=== PATIENT | female | born 2005 | race Two or more races ===

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

== ENCOUNTER 2023-01-09 13:59 | Emergency (ER) | payer OTHER, SELFPAY ==
[2023-01-09 14:45] VITALS: BP 100/85; PULSE 130; RESP 17; TEMP 38.3; O2SAT 99; BMI 37.8
--- NOTE | 2023-01-09 14:46 | ED.GENADULT ---
HPI - General Adult General Chief complaint: General Medical Stated complaint: Sore throat/Fever Time Seen by Provider: 01/09/23 14:46 Source: patient, RN notes reviewed and old records reviewed Mode of arrival: ambulatory Limitations: no limitations History of Present Illness HPI narrative: 17-year-old female presents for evaluation of sore throat and fever. Patient reports that she woke up this morning. She is able to handle her secretions. She is able to eat and drink but it is painful. Denies any cough or respiratory symptoms. She has had some associated nausea Related Data Previous Rx's Medication Instructions Recorded erythromycin 5 mg/gram (0.5 %) eye 0.5 inch ophthalmic (eye) QID #3.5 08/28/20 ointment grams clindamycin HCl 300 mg capsule 300 mg PO Q6H 7 days #28 caps 08/15/21 oxycodone 5 mg capsule 5 mg PO Q8H PRN pain 2 days #6 caps 08/15/21 benzonatate 200 mg capsule 200 mg PO TID PRN cough #14 caps 11/27/21 ibuprofen 600 mg tablet 600 mg PO Q8H PRN pain #20 tabs 11/27/21 oseltamivir 75 mg capsule (Tamiflu) 75 mg PO BID 5 days #10 caps 11/27/21 miconazole nitrate 1,200 mg-2 % 1 supp vaginal BEDTIME 1 dose #1 ea 08/09/22 vaginal kit metronidazole 500 mg tablet 500 mg PO Q12H 7 days #14 tabs 08/12/22 erythromycin 5 mg/gram (0.5 %) eye 0.5 inch ophthalmic (eye) TID #3.5 10/03/22 ointment grams clindamycin HCl 300 mg capsule 300 mg PO Q6H #28 caps 01/09/23 (Cleocin HCl) ondansetron 4 mg disintegrating 4 mg PO Q8H PRN nausea and 01/09/23 tablet vomiting #20 tabs Allergies Allergy/AdvReac Type Severity Reaction Status Date / Time amoxicillin [AMOXICILLIN] Allergy Unknown HIVES Verified 01/09/23 14:45 Review of Systems Constitutional: Constitutional: Denies body ache(s), Reports fatigue, Reports fever(s) and Denies headache(s) Eyes: Eyes: Denies blurry vision ENT: Denies headache(s) and Reports sore throat Cardiovascular: Cardiovascular: Denies chest pain and Denies dyspnea Respiratory: Respiratory: Denies cough and Denies dyspnea Gastrointestinal: Gastrointestinal: Denies abdominal pain, Reports nausea and Denies vomiting Neurologic: Denies headache(s) Endocrine: Endocrine: Reports fatigue PMFSH Past Medical History Medical History Asthma Surgical History S/P cholecystectomy Social History Social History Advance Directives: No Advance Directives Information Provided: Yes Physical Exam ED Vital Signs: Vital Signs - 24 hr 01/09/23 14:45 01/09/23 15:54 Temperature 101 F H Pulse Rate 130 H 115 H Respiratory Rate 17 Blood Pressure 100/85 Pulse Oximetry 99 98 Oxygen Delivery Method Room Air Room Air BMI result Body Mass Index 37.8 Const General: healthy appearing, comfortable, no acute distress, alert and awake Nutritional Appearance: well nourished Orientation/consciousness: patient oriented x3 HENMT Other: Retropharynx is erythematous with tonsillar hypertrophy. Airway is patent Head: Yes normocephalic and Yes atraumatic Eyes Eyelids: Yes eyelids normal Conjunctivae: conjunctivae normal Sclerae: sclerae normal Corneas: corneas normal Pupils: Equal, round and reactive pupils present EOM: EOMs intact bilaterally Neck Neck: Yes full ROM Resp Effort & Inspection: normal respiratory effort, able to speak in complete sentences, no audible wheezes and not labored Auscultation: clear to auscultation bilaterally Cardio Rate: regular rate Rhythm: regular rhythm GI Inspection: No distended Palpation (GI): Soft to palpation, not firm, nontender, no guarding and not rigid Auscultation: normoactive bowel sounds Skin General skin exam: no rashes or lesions noted and elasticity normal Neuro General: patient oriented x3 Cranial nerves: Yes Equal, round and reactive pupils present and Yes Bilaterally intact EOM present Cognition (Neuro): normal cognition Extrem Other: Moving all extremities well without any obvious deformities Course Reevaluation(s) Reevaluation #1: Patient tested positive for strep pharyngitis. Her heart rate improved with antipyretics. We will discharge the patient with Zofran and clindamycin given him a sauna allergies Time: 16:03 Medications Administered Discontinued Medications Generic Name Dose Route Start Last Admin Trade Name Lj PRN Reason Stop Dose Admin Acetaminophen 975 mg 01/09/23 14:49 01/09/23 15:07 Acetaminophen 325 Mg Tablet PO 01/09/23 14:50 975 mg ONCE ONE Administration Ondansetron HCl 4 mg 01/09/23 14:49 01/09/23 15:07 Ondansetron Odt 4 Mg Tab.Rapdis TRANSLINGU 01/09/23 14:50 4 mg ONCE ONE Administration Medical Decision Making Medical Decision Making MDM Narrative: 17-year-old female woke up with a sore throat today. Denies any cough or other viral symptoms. She has a fever 101 is tachycardic with a regular rhythm to 140. This is likely related to the patient's fever. We will get a strep test, check basic labs and treat her fever as well as nausea. There is no evidence of peritonsillar abscess Differential Diagnosis Strep throat Viral syndrome Influenza COVID-19 Lab Data 01/09/23 15:22 01/09/23 15:21 Labs: Lab Results 01/09/23 01/09/23 01/09/23 Range/Units 15:21 15:22 15:22 WBC 15.2 H (4.8-10.8) X10*3/uL RBC 4.49 (4.20-5.50) X10*6/uL Hgb 12.5 (12.0-16.0) g/dl Hct 37.0 (37.0-47.0) % MCV 82.4 (80.0-98.0) fL MCH 27.8 (27.0-33.0) pg MCHC 33.8 (31.0-35.0) g/dl RDW 13.6 (11.0-16.0) % Plt Count 317 (160-400) X10*3/uL MPV 9.3 L (9.4-12.3) fL Immature Gran % (Auto) 0.5 H (0.0-0.4) % Neut % (Auto) 83.9 H (45-73) % Lymph % (Auto) 5.1 L (20-40) % [place] % (Auto) 10.3 (2-11) % Eos % (Auto) 0.0 (0-4) % Baso % (Auto) 0.2 (0-2) % Lymph # (Auto) 0.8 L (1.2-4.9) X10*3/uL [place] # (Auto) 1.6 H (0.1-1.2) X10*3/uL Eos # (Auto) 0.0 (0.0-0.4) X10*3/uL Baso # (Auto) 0.0 (0.0-0.2) X10*3/uL Abs Immat Gran (auto) 0.08 H (0.00-0.03) X10*3/uL Absolute Neuts (auto) 12.8 H (2.0-8.3) x10*3/uL Absolute Nucleated RBC 0.000 (0.0-0.012) X10*3/uL Nucleated RBC % (auto) 0.0 (0.0-0.2) /100WBC Sodium 134 L (135-145) mmol/L Potassium 3.9 (3.3-5.1) mmol/L Chloride 102 (96-108) mmol/L Carbon Dioxide 24 (22-29) mmol/L Anion Gap 12 (12-20) BUN 11 (9-16) mg/dL Creatinine 0.81 (0.5-1.4) mg/dL Estim Creat Clear Calc 114.5 Estimated GFR > 60 Random Glucose 117 H (60-115) mg/dL Calcium 9.0 (8.4-10.2) mg/dL Total Bilirubin 1.0 (0.0-1.0) mg/dL AST 28 (5-31) U/L ALT 26 (0-31) U/L Alkaline Phosphatase 77 (39-117) U/L Total Protein 7.3 (6.5-8.0) g/dL Albumin 4.3 (3.5-5.0) g/dL S. pyogenes GrpA JORGE Positive A (Negative) Discharge Plan Discharge Clinical Impression: Strep pharyngitis Patient Disposition: Home, Self-Care Instructions: Strep Throat (ED) Additional Instructions: You tested positive for strep throat. Take clindamycin 4 times daily for 7 days Get a new toothbrush after you take her last antibiotic You may use Zofran as needed for nausea and vomiting Drink lots of fluids Prescriptions: New clindamycin HCl [Cleocin HCl] 300 mg capsule 300 mg PO Q6H Qty: 28 0RF ondansetron 4 mg tablet,disintegrating 4 mg PO Q8H PRN (Reason: nausea and vomiting) Qty: 20 0RF No Action erythromycin 5 mg/gram (0.5 %) ointment 0.5 inch ophthalmic (eye) QID Qty: 3.5 0RF erythromycin 5 mg/gram (0.5 %) ointment 0.5 inch ophthalmic (eye) TID Qty: 3.5 0RF clindamycin HCl 300 mg capsule 300 mg PO Q6H 7 Days Qty: 28 0RF oxycodone 5 mg capsule 5 mg PO Q8H PRN (Reason: pain) 2 Days Qty: 6 0RF oseltamivir [Tamiflu] 75 mg capsule 75 mg PO BID 5 Days Qty: 10 0RF ibuprofen 600 mg tablet 600 mg PO Q8H PRN (Reason: pain) Qty: 20 0RF benzonatate 200 mg capsule 200 mg PO TID PRN (Reason: cough) Qty: 14 0RF miconazole nitrate 1,200-2 mg-% kit 1 supp vaginal BEDTIME Qty: 1 0RF metronidazole 500 mg tablet 500 mg PO Q12H 7 Days Qty: 14 0RF
[2023-01-09] MEDS: Acetaminophen 325 MG TABLET 975 MG PO (15:07)
[2023-01-09] MEDS: Ondansetron ODT 4 MG TAB.RAPDIS TRANSLINGU (15:07)
[2023-01-09 15:25] LABS: MANUAL DIFF FLAG NO
[2023-01-09 15:26] LABS: Basophils Percent Auto 0.2 % (0-2); Hemoglobin 12.5 g/dl (12.0-16.0); Imm Gran Abs Auto 0.08 X10*3/uL (0.00-0.03); Imm Gran Pct Auto 0.5 % (0.0-0.4); Lymphocytes Absolute Auto 0.8 X10*3/uL (1.2-4.9); Lymphocytes Percent Auto 5.1 % (20-40); Mean Corpuscular HGB Conc 33.8 g/dl (31.0-35.0); Mean Corpuscular Hemoglobin 27.8 pg (27.0-33.0); Mean Corpuscular Volume 82.4 fL (80.0-98.0); Mean Platelet Volume 9.3 fL (9.4-12.3); Monocytes Absolute Auto 1.6 X10*3/uL (0.1-1.2); Monocytes Percent Auto 10.3 % (2-11); Neutrophils Absolute Auto 12.8 x10*3/uL (2.0-8.3); Neutrophils Percent Auto 83.9 % (45-73); Platelet Count 317 X10*3/uL (160-400); Red Blood Count 4.49 X10*6/uL (4.20-5.50); Red Cell Distribution Width 13.6 % (11.0-16.0); SCAN SMEAR FLAG 1; White Blood Count 15.2 X10*3/uL (4.8-10.8)
[2023-01-09 15:32] LABS: IDNOW Serial# 08D9AD1C; Strep A Nucleic Acid Positive (Negative)
[2023-01-09 15:50] LABS: Alanine Aminotransferase 26 U/L (0-31); Albumin Level 4.3 g/dL (3.5-5.0); Alkaline Phosphatase 77 U/L (39-117); Anion Gap 12 (12-20); Aspartate Amino Transferase 28 U/L (5-31); Blood Urea Nitrogen 11 mg/dL (9-16); Carbon Dioxide 24 mmol/L (22-29); Chloride 102 mmol/L (96-108); Creatinine Clr Calc Pharmacy 114.5; Estimated Glomerular Filt Rate > 60; Glucose Random 117 mg/dL (60-115); Potassium 3.9 mmol/L (3.3-5.1); Sodium 134 mmol/L (135-145); Total Protein 7.3 g/dL (6.5-8.0)
[2023-01-09 15:54] VITALS: PULSE 115; O2SAT 98
== END 2023-01-09 16:10 | disposition home or self-care (01) ==
PROVIDERS: Physician Assistant; Emergency Provider Emergency Medicine Emergency Medical Services; PCP Nurse Practitioner Family
DX: J02.0 Streptococcal pharyngitis (principal); R50.9 Fever, unspecified; Z79.899 Other long term (current) drug therapy
CPT/HCPCS: 80053; 85025; 87651; 99283

== ENCOUNTER 2023-04-28 00:25 | Emergency (ER) | payer OTHER, SELFPAY ==
[2023-04-28 00:48] VITALS: BP 125/87; PULSE 73; RESP 16; TEMP 36.7; O2SAT 98; BMI 37.8
--- NOTE | 2023-04-28 01:16 | ED_ITS ---
HPI - Dental/Oral General Chief complaint: Dental/Oral Stated complaint: dental pain Time Seen by Provider: 04/28/23 01:16 Source: patient Mode of arrival: ambulatory Limitations: no limitations History of Present Illness HPI Narrative: Patient with a cavity in left lower 2nd molar tooth 18. Had a filling done whi ch came of 1 year ago for last few days having pain and sensitivity to cold water no fever no chills Related Data Previous Rx's Medication Instructions Recorded erythromycin 5 mg/gram (0.5 %) eye 0.5 inch ophthalmic (eye) QID #3.5 08/28/20 ointment grams clindamycin HCl 300 mg capsule 300 mg PO Q6H 7 days #28 caps 08/15/21 oxycodone 5 mg capsule 5 mg PO Q8H PRN pain 2 days #6 caps 08/15/21 benzonatate 200 mg capsule 200 mg PO TID PRN cough #14 caps 11/27/21 ibuprofen 600 mg tablet 600 mg PO Q8H PRN pain #20 tabs 11/27/21 oseltamivir 75 mg capsule (Tamiflu) 75 mg PO BID 5 days #10 caps 11/27/21 miconazole nitrate 1,200 mg-2 % 1 supp vaginal BEDTIME 1 dose #1 ea 08/09/22 vaginal kit metronidazole 500 mg tablet 500 mg PO Q12H 7 days #14 tabs 08/12/22 erythromycin 5 mg/gram (0.5 %) eye 0.5 inch ophthalmic (eye) TID #3.5 10/03/22 ointment grams clindamycin HCl 300 mg capsule 300 mg PO Q6H #28 caps 01/09/23 (Cleocin HCl) ondansetron 4 mg disintegrating 4 mg PO Q8H PRN nausea and 01/09/23 tablet vomiting #20 tabs clindamycin HCl 300 mg capsule 300 mg PO TID #30 caps 04/28/23 (Cleocin HCl) tramadol 50 mg tablet 50 mg PO Q6H PRN pain #20 tabs 04/28/23 Allergies Allergy/AdvReac Type Severity Reaction Status Date / Time amoxicillin [AMOXICILLIN] Allergy Unknown HIVES Verified 01/09/23 14:45 Review of Systems Review of Systems: Yes all other systems are reviewed and are negative PMFSH Past Medical History Medical History Asthma Surgical History S/P cholecystectomy Social History Social History Advance Directives: No Advance Directives Information Provided: Yes Physical Exam Vital Signs: Vital Signs: Last Vital Signs Temp 98.1 F 04/28/23 00:48 Pulse 73 04/28/23 00:48 Resp 16 04/28/23 00:48 BP 125/87 04/28/23 00:48 Pulse Ox 98 04/28/23 00:48 O2 Del Method Room Air 04/28/23 00:48 BMI result Body Mass Index 37.8 HEENT: Teeth image: 1. Cavity in tooth 18. Tenderness no gum swelling sensitiv e to touch and cold Medical Decision Making Medical Decision Making MDM Narrative: Patient with pulpitis likely need a root canal discharge patient home on clindamycin tramadol follow with dentist Discharge Plan Discharge Clinical Impression: Dental caries Patient Disposition: Home, Self-Care Instructions: Toothache (ED) Additional Instructions: Take antibiotic as prescribed Pain medication as prescribed Follow-up with dentist Prescriptions: New clindamycin HCl [Cleocin HCl] 300 mg capsule 300 mg PO TID Qty: 30 0RF tramadol 50 mg tablet 50 mg PO Q6H PRN (Reason: pain) Qty: 20 0RF No Action erythromycin 5 mg/gram (0.5 %) ointment 0.5 inch ophthalmic (eye) QID Qty: 3.5 0RF erythromycin 5 mg/gram (0.5 %) ointment 0.5 inch ophthalmic (eye) TID Qty: 3.5 0RF clindamycin HCl 300 mg capsule 300 mg PO Q6H 7 Days Qty: 28 0RF oxycodone 5 mg capsule 5 mg PO Q8H PRN (Reason: pain) 2 Days Qty: 6 0RF oseltamivir [Tamiflu] 75 mg capsule 75 mg PO BID 5 Days Qty: 10 0RF ibuprofen 600 mg tablet 600 mg PO Q8H PRN (Reason: pain) Qty: 20 0RF benzonatate 200 mg capsule 200 mg PO TID PRN (Reason: cough) Qty: 14 0RF miconazole nitrate 1,200-2 mg-% kit 1 supp vaginal BEDTIME Qty: 1 0RF metronidazole 500 mg tablet 500 mg PO Q12H 7 Days Qty: 14 0RF clindamycin HCl [Cleocin HCl] 300 mg capsule 300 mg PO Q6H Qty: 28 0RF ondansetron 4 mg tablet,disintegrating 4 mg PO Q8H PRN (Reason: nausea and vomiting) Qty: 20 0RF
[2023-04-28] MEDS: oxyCODONE HCl Immed Release 5 MG TABLET PO (02:13)
[2023-04-28] MEDS: Clindamycin HCL 300 MG CAPSULE PO (02:13)
[2023-04-28 02:49] VITALS: BP 107/66; PULSE 70; RESP 16; O2SAT 99
== END 2023-04-28 02:52 | disposition home or self-care (01) ==
PROVIDERS: Emergency Provider Internal Medicine
DX: K02.9 Dental caries, unspecified (principal)
CPT/HCPCS: 99283; 99284

== ENCOUNTER 2023-07-09 08:24 | Emergency (ER) | payer OTHER, SELFPAY ==
[2023-07-09 08:57] VITALS: BP 124/53; PULSE 83; RESP 15; TEMP 36.7; BMI 41.6
--- NOTE | 2023-07-09 09:08 | ED_ITS ---
HPI - General Adult General Chief complaint: Dental/Oral Stated complaint: facial swelling Time Seen by Provider: 07/09/23 09:06 Source: patient, family, RN notes reviewed and old records reviewed Mode of arrival: ambulatory History of Present Illness HPI narrative: 18-year-old female with no significant past medical history presenting to the ED complaining of left lower jaw/facial swelling with dental pain x few days. Admits to chronically broken filling to left lower molar. States has not seen dentist for a long time due to scheduling issues. Denies recent dental procedures, fever/chills, SOB, throat closing sensation, ear pain, drainage Related Data Previous Rx's Medication Instructions Recorded erythromycin 5 mg/gram (0.5 %) eye 0.5 inch ophthalmic (eye) QID #3.5 08/28/20 ointment grams clindamycin HCl 300 mg capsule 300 mg PO Q6H 7 days #28 caps 08/15/21 oxycodone 5 mg capsule 5 mg PO Q8H PRN pain 2 days #6 caps 08/15/21 benzonatate 200 mg capsule 200 mg PO TID PRN cough #14 caps 11/27/21 ibuprofen 600 mg tablet 600 mg PO Q8H PRN pain #20 tabs 11/27/21 oseltamivir 75 mg capsule (Tamiflu) 75 mg PO BID 5 days #10 caps 11/27/21 miconazole nitrate 1,200 mg-2 % 1 supp vaginal BEDTIME 1 dose #1 ea 08/09/22 vaginal kit metronidazole 500 mg tablet 500 mg PO Q12H 7 days #14 tabs 08/12/22 erythromycin 5 mg/gram (0.5 %) eye 0.5 inch ophthalmic (eye) TID #3.5 10/03/22 ointment grams clindamycin HCl 300 mg capsule 300 mg PO Q6H #28 caps 01/09/23 (Cleocin HCl) ondansetron 4 mg disintegrating 4 mg PO Q8H PRN nausea and 01/09/23 tablet vomiting #20 tabs clindamycin HCl 300 mg capsule 300 mg PO TID #30 caps 04/28/23 (Cleocin HCl) tramadol 50 mg tablet 50 mg PO Q6H PRN pain #20 tabs 04/28/23 cefdinir 300 mg capsule 300 mg PO BID 7 days #14 caps 10/21/23 Allergies Allergy/AdvReac Type Severity Reaction Status Date / Time amoxicillin [AMOXICILLIN] Allergy Unknown HIVES Verified 01/09/23 14:45 Review of Systems Review of Systems: Constitutional: No Fever, No Chills ENT/Mouth: No Ear Pain, No Nasal Congestion, +facial swelling, +dental pain, No Hoarseness, No sore throat, No Rhinorrhea, No Swallowing Difficulty Cardiovascular: No Chest Pain, No SOB Respiratory: No Cough, No Sputum, No Wheezing Gastrointestinal: No Nausea, No Vomiting, No Diarrhea, No Constipation, No Abdominal pain Musculoskeletal: No joint pain, No Myalgias, No Joint Swelling Skin: No Skin Lesions, No rash Neuro: No Weakness Yes all other systems are reviewed and are negative Constitutional: Constitutional: Reports as per [facility] Past Medical History Attestation statement: The following information was validated with the patient. Source: old records reviewed Medical History Asthma Surgical History S/P cholecystectomy Social History Social History Alcohol intake: never Advance Directives: No Advance Directives Information Provided: No Physical Exam ED Vital Signs: Vital Signs - 24 hr 07/09/23 08:57 Temperature 98.0 F Pulse Rate 83 Respiratory Rate 15 Blood Pressure 124/53 L Oxygen Delivery Method Room Air BMI result Body Mass Index 41.6 Const General: cooperative, healthy appearing and no acute distress Orientation/consciousness: patient oriented x3 Limitations: no limitations [facility] Other: + mild left lower jaw/facial swelling. + left lower 2nd molar with mild gingival swelling. No visible pulp/fractured tooth. No fluctuance/induration or cellulitis. Talking in complete sentences, no respiratory distress Head: Yes normal to inspection and Yes atraumatic Ears: hearing grossly normal bilaterally, external ears normal and mastoids normal General nose exam: Normal external nose present Face and sinus: Yes normal facial exam Mouth: Normal oral and palatal mucosa present, no audible dysphonia and no drooling Throat: Yes uvula midline, No peritonsillar mass, No uvula laterally displaced and No uvular edema Eyes General: appearance normal, both eyes and all related structures EOM: EOMs intact bilaterally Neck Neck: Yes normal visual inspection, Yes no meningeal signs and No anterior neck swelling Resp Effort & Inspection: normal respiratory effort, no respiratory distress and no stridor Cardio Rate: regular rate Skin Rashes: no rashes Wounds: no wounds Neuro General: patient oriented x3, tone normal and no meningeal signs Cranial nerves: Yes CN's II-XII intact bilaterally Gait exam (Neuro): Normal gait present Extrem General: Yes normal to inspection Medical Decision Making Medical Decision Making MDM Narrative: 18-year-old female with no significant past medical history presenting to the ED complaining of left lower jaw/facial swelling with dental pain x few days. On exam vital signs stable, NAD, nontoxic appearing, talking bleed sentences. Mild left lower jaw swelling noted without tenderness. + left lower 2nd molar with gingival tenderness. No fluctuance or induration. No cellulitis. Concern for dental/gingival infection/abscess. No drainable collection at this time. Low suspicion for [employer]/retropharyngeal abscess or osteomyelitis Plan: PO antibiotics, dentistry follow-up Please refer to course for remaining clinical decision making, interpretation of labs/imaging results, and discussions with consultants and/or family members. Differential Diagnosis Differential Diagnoses: The differential diagnosis associated with the presentation includes As above External Record Review External record reviewed: Inpatient record, Office record, Outpatient record, Prior outpatient labs, Prior outpatient radiology, Primary care record and Outside ED record Tests considered The following testing was considered but not selected: As above Prescription Management I considered prescription management with: Pain Medication and Antibiotic Discharge Plan Discharge Clinical Impression: Dental infection Patient Disposition: Home, Self-Care Instructions: Dental Abscess (ED) Additional Instructions: Cefdinir is an antibiotic please take as prescribed You need to follow-up with a dentist Take Tylenol and Motrin at home for pain/swelling Is symptoms persist or worsen, your unable to swallow, difficulty breathing, pus drainage return to the ED Prescriptions: New cefdinir 300 mg capsule 300 mg PO BID 7 Days Qty: 14 0RF No Action erythromycin 5 mg/gram (0.5 %) ointment 0.5 inch ophthalmic (eye) QID Qty: 3.5 0RF erythromycin 5 mg/gram (0.5 %) ointment 0.5 inch ophthalmic (eye) TID Qty: 3.5 0RF clindamycin HCl 300 mg capsule 300 mg PO Q6H 7 Days Qty: 28 0RF oxycodone 5 mg capsule 5 mg PO Q8H PRN (Reason: pain) 2 Days Qty: 6 0RF oseltamivir [Tamiflu] 75 mg capsule 75 mg PO BID 5 Days Qty: 10 0RF ibuprofen 600 mg tablet 600 mg PO Q8H PRN (Reason: pain) Qty: 20 0RF benzonatate 200 mg capsule 200 mg PO TID PRN (Reason: cough) Qty: 14 0RF miconazole nitrate 1,200-2 mg-% kit 1 supp vaginal BEDTIME Qty: 1 0RF metronidazole 500 mg tablet 500 mg PO Q12H 7 Days Qty: 14 0RF clindamycin HCl [Cleocin HCl] 300 mg capsule 300 mg PO Q6H Qty: 28 0RF ondansetron 4 mg tablet,disintegrating 4 mg PO Q8H PRN (Reason: nausea and vomiting) Qty: 20 0RF clindamycin HCl [Cleocin HCl] 300 mg capsule 300 mg PO TID Qty: 30 0RF tramadol 50 mg tablet 50 mg PO Q6H PRN (Reason: pain) Qty: 20 0RF Referrals: Junior Batista [Dentist] - Daryl Garrett DMD [Dentist] - Darren Kim DMD [Dentist] - Interventions: ED Discharge Assessment Last Done: 07/09/23 09:40 Discharge Date/Time: 07/09/23 09:42
== END 2023-07-09 09:42 | disposition home or self-care (01) ==
PROVIDERS: Emergency Provider Internal Medicine
DX: K04.7 Periapical abscess without sinus (principal); K08.89 Other specified disorders of teeth and supporting structures; Z79.899 Other long term (current) drug therapy
CPT/HCPCS: 99283

== ENCOUNTER 2023-11-14 21:10 | Emergency (ER) | payer OTHER, SELFPAY ==
[2023-11-14 21:17] VITALS: BP 143/89; PULSE 99; RESP 20; TEMP 36.8; O2SAT 100; BMI 43.0
[2023-11-14 21:57] LABS: Appearance Urine Clear; Color Urine Yellow; Glucose Urine UA Negative (Negative); Leukocyte Esterase Urine Negative (Negative); Nitrite Urine Negative (Negative); Specific Gravity - Urine 1.025 (1.005-1.025); Urine Blood Negative (Negative); Urine Ketones Negative (Negative); Urine Protein Negative (Neg-Trace)
[2023-11-14 22:01] LABS: UPreg QC Valid YES; Urine Pregnancy NEGATIVE (NEGATIVE)
[2023-11-15 01:56] VITALS: BP 124/73; PULSE 94; RESP 16; TEMP 37; O2SAT 98
[2023-11-15 02:00] VITALS: BP 127/76; PULSE 97; RESP 16; TEMP 36.9; O2SAT 100
--- NOTE | 2023-11-15 02:09 | ED_ITS ---
HPI - Abdominal Pain General Chief Complaint: Abdominal Pain Stated Complaint: abd pain Time Seen by Provider: 11/15/23 02:07 Source: patient and family Limitations: no limitations History of Present Illness HPI narrative: Patient was healthy been having epigastric pain with nausea and diarrhea dry heaves for last 1 week patient was seen at urgent care center with questionable positive test patient came here for further evaluation patient denies any pelvic pain has last menstruation 3 weeks ago no breast tenderness no fever no chills no other family member sick patient does have history of gastritis take Prilosec 20 mg daily patient is status post cholecystectomy with history of gastritis on omeprazole 20 mg daily Related Data Previous Rx's Medication Instructions Recorded erythromycin 5 mg/gram (0.5 %) eye 0.5 inch ophthalmic (eye) QID #3.5 08/28/20 ointment grams clindamycin HCl 300 mg capsule 300 mg PO Q6H 7 days #28 caps 08/15/21 oxycodone 5 mg capsule 5 mg PO Q8H PRN pain 2 days #6 caps 08/15/21 benzonatate 200 mg capsule 200 mg PO TID PRN cough #14 caps 11/27/21 ibuprofen 600 mg tablet 600 mg PO Q8H PRN pain #20 tabs 11/27/21 oseltamivir 75 mg capsule (Tamiflu) 75 mg PO BID 5 days #10 caps 11/27/21 miconazole nitrate 1,200 mg-2 % 1 supp vaginal BEDTIME 1 dose #1 ea 08/09/22 vaginal kit metronidazole 500 mg tablet 500 mg PO Q12H 7 days #14 tabs 08/12/22 erythromycin 5 mg/gram (0.5 %) eye 0.5 inch ophthalmic (eye) TID #3.5 10/03/22 ointment grams clindamycin HCl 300 mg capsule 300 mg PO Q6H #28 caps 01/09/23 (Cleocin HCl) ondansetron 4 mg disintegrating 4 mg PO Q8H PRN nausea and 01/09/23 tablet vomiting #20 tabs clindamycin HCl 300 mg capsule 300 mg PO TID #30 caps 04/28/23 (Cleocin HCl) tramadol 50 mg tablet 50 mg PO Q6H PRN pain #20 tabs 04/28/23 cefdinir 300 mg capsule 300 mg PO BID 7 days #14 caps 07/09/23 ondansetron 4 mg disintegrating 4 mg PO Q6-8H PRN nausea and 11/15/23 tablet vomiting #10 tabs sucralfate 1 gram tablet 1 g PO BID #60 tabs 11/15/23 Allergies Allergy/AdvReac Type Severity Reaction Status Date / Time amoxicillin [AMOXICILLIN] Allergy Unknown HIVES Verified 11/14/23 21:17 Review of Systems Review of Systems Yes all other systems are reviewed and are negative [facility] Past Medical History Medical History Asthma Surgical History S/P cholecystectomy Social History Social History Unable to assess alcohol history related to: Unknown Alcohol intake: never Smoked in Last 30 Days: No Use of substances other than those prescribed or required for medical reasons: No Advance Directives: No Advance Directives Information Provided: No Patient : No Physical Exam ED Vital Signs: Vital Signs - 24 hr 11/14/23 21:17 11/15/23 01:56 11/15/23 02:00 Temperature 98.3 F 98.6 F 98.5 F Pulse Rate 99 94 97 Respiratory Rate 20 16 16 Blood Pressure 143/89 H 124/73 127/76 Pulse Oximetry 100 98 100 Oxygen Delivery Method Room Air Room Air Room Air 11/15/23 04:01 Temperature 97.6 F Pulse Rate 75 Respiratory Rate 17 Blood Pressure 118/60 Pulse Oximetry 98 Oxygen Delivery Method Room Air BMI result Body Mass Index 43.0 Appearance: Alert. Oriented X3. No acute distress. Eyes: No pallor or icterus ENT: Pharynx normal. Oral Mucosa moist Neck: Normal inspection. Neck supple. CVS: Normal heart rate and rhythm. Pulses normal. Respiratory: No respiratory distress. Equal air entry bilateral, no wheezing/rales/rhonchi Abdomen: Soft mild epigastric tenderness Lfanagan sign negative. Bowel sounds are present, no mass palpable, no CVA tenderness Skin: Skin warm and dry. Normal skin color. Normal skin turgor. Extremities: No lower extremity edema. No calf tenderness Neuro: Oriented X 3. Medical Decision Making Medical Decision Making MDM Narrative: Patient with chronic gastritis labs are stable discharge patient home on sucralfate advised to take 40 mg of omeprazole Differential Diagnosis Differential Diagnoses: The differential diagnosis associated with the presentation includes Pancreatitis/gastritis/gastroenteritis/UTI Lab Data MDM Lab Attestation statement: I reviewed the patient's lab results. 11/15/23 02:04 11/15/23 02:04 Labs: Lab Results 11/14/23 11/15/23 Range/Units 21:48 02:04 WBC 11.7 H (4.8-10.8) X10*3/uL RBC 4.13 L (4.20-5.50) X10*6/uL Hgb 11.4 L (12.0-16.0) g/dl Hct 33.6 L (37.0-47.0) % MCV 81.4 (80.0-98.0) fL MCH 27.6 (27.0-33.0) pg MCHC 33.9 (31.0-35.0) g/dl RDW 13.3 (11.0-16.0) % Plt Count 358 (160-400) X10*3/uL MPV 8.9 L (9.4-12.3) fL Immature Gran % (Auto) 0.3 (0.0-0.4) % Neut % (Auto) 65.3 (45-73) % Lymph % (Auto) 24.3 (20-40) % [place] % (Auto) 8.2 (2-11) % Eos % (Auto) 1.6 (0-4) % Baso % (Auto) 0.3 (0-2) % Lymph # (Auto) 2.8 (1.2-4.9) X10*3/uL [place] # (Auto) 1.0 (0.1-1.2) X10*3/uL Eos # (Auto) 0.2 (0.0-0.4) X10*3/uL Baso # (Auto) 0.0 (0.0-0.2) X10*3/uL Abs Immat Gran (auto) 0.03 (0.00-0.03) X10*3/uL Absolute Neuts (auto) 7.6 (2.0-8.3) x10*3/uL Absolute Nucleated RBC 0.000 (0.0-0.012) X10*3/uL Nucleated RBC % (auto) 0.0 (0.0-0.2) /100WBC Sodium 140 (135-145) mmol/L Potassium 3.7 (3.3-5.1) mmol/L Chloride 104 (96-108) mmol/L Carbon Dioxide 27 (22-29) mmol/L Anion Gap 13 (12-20) BUN 13 (9-16) mg/dL Creatinine 0.74 (0.5-1.4) mg/dL Estim Creat Clear Calc 133.9 Estimated GFR > 60 Random Glucose 95 (60-115) mg/dL Calcium 9.4 (8.4-10.2) mg/dL Total Bilirubin 0.4 (0.0-1.0) mg/dL Direct Bilirubin 0.2 (0.0-0.5) mg/dL AST 15 (5-31) U/L ALT 13 (0-31) U/L Alkaline Phosphatase 85 (39-117) U/L Total Protein 7.7 (6.5-8.0) g/dL Albumin 4.4 (3.5-5.0) g/dL Lipase 16 (8-78) U/L Urine Color Yellow Urine Appearance Clear Urine pH 6.0 (5.0-9.0) Ur Specific [place] 1.025 (1.005-1.025) Urine Protein Negative (Neg-Trace) mg/dL Urine Glucose (UA) Negative (Negative) mg/dL Urine Ketones Negative (Negative) mg/dL Urine Blood Negative (Negative) Urine Nitrite Negative (Negative) Ur Leukocyte Esterase Negative (Negative) Urine Test NEGATIVE (NEGATIVE) Medications Administered Discontinued Medications Generic Name Dose Route Start Last Admin Trade Name Felipeq PRN Reason Stop Dose Admin Famotidine 20 mg 11/15/23 02:38 11/15/23 03:14 Famotidine 20 Mg Tablet PO 11/15/23 02:39 20 mg ONCE ONE Administration Ondansetron HCl 4 mg 11/15/23 02:10 11/15/23 03:14 Ondansetron Odt 4 Mg Tab.Rapdis TRANSLINGU 11/15/23 02:11 4 mg ONCE ONE Administration Discharge Plan Discharge Clinical Impression: Acute gastritis Patient Disposition: Home, Self-Care Instructions: Gastritis (ED) Additional Instructions: Avoid fried food Increase the dose of omeprazole to 40 mg daily Nausea medication and sucralfate as prescribed Follow with PCP Prescriptions: New ondansetron 4 mg tablet,disintegrating 4 mg PO Q6-8H PRN (Reason: nausea and vomiting) Qty: 10 0RF sucralfate 1 gram tablet 1 g PO BID Qty: 60 0RF No Action erythromycin 5 mg/gram (0.5 %) ointment 0.5 inch ophthalmic (eye) QID Qty: 3.5 0RF erythromycin 5 mg/gram (0.5 %) ointment 0.5 inch ophthalmic (eye) TID Qty: 3.5 0RF clindamycin HCl 300 mg capsule 300 mg PO Q6H 7 Days Qty: 28 0RF oxycodone 5 mg capsule 5 mg PO Q8H PRN (Reason: pain) 2 Days Qty: 6 0RF oseltamivir [Tamiflu] 75 mg capsule 75 mg PO BID 5 Days Qty: 10 0RF ibuprofen 600 mg tablet 600 mg PO Q8H PRN (Reason: pain) Qty: 20 0RF benzonatate 200 mg capsule 200 mg PO TID PRN (Reason: cough) Qty: 14 0RF miconazole nitrate 1,200-2 mg-% kit 1 supp vaginal BEDTIME Qty: 1 0RF metronidazole 500 mg tablet 500 mg PO Q12H 7 Days Qty: 14 0RF clindamycin HCl [Cleocin HCl] 300 mg capsule 300 mg PO Q6H Qty: 28 0RF ondansetron 4 mg tablet,disintegrating 4 mg PO Q8H PRN (Reason: nausea and vomiting) Qty: 20 0RF clindamycin HCl [Cleocin HCl] 300 mg capsule 300 mg PO TID Qty: 30 0RF tramadol 50 mg tablet 50 mg PO Q6H PRN (Reason: pain) Qty: 20 0RF cefdinir 300 mg capsule 300 mg PO BID 7 Days Qty: 14 0RF Stand Alone Forms: Work/School Release Interventions: ED Discharge Assessment Last Done: 11/15/23 04:02 Discharge Date/Time: 11/15/23 04:03
[2023-11-15 02:10] LABS: Basophils Percent Auto 0.3 % (0-2); Eosinophils Absolute Auto 0.2 X10*3/uL (0.0-0.4); Eosinophils Percent Auto 1.6 % (0-4); Hematocrit 33.6 % (37.0-47.0); Hemoglobin 11.4 g/dl (12.0-16.0); Imm Gran Abs Auto 0.03 X10*3/uL (0.00-0.03); Imm Gran Pct Auto 0.3 % (0.0-0.4); Lymphocytes Absolute Auto 2.8 X10*3/uL (1.2-4.9); Lymphocytes Percent Auto 24.3 % (20-40); MANUAL DIFF FLAG NO; Mean Corpuscular HGB Conc 33.9 g/dl (31.0-35.0); Mean Corpuscular Hemoglobin 27.6 pg (27.0-33.0); Mean Corpuscular Volume 81.4 fL (80.0-98.0); Mean Platelet Volume 8.9 fL (9.4-12.3); Monocytes Percent Auto 8.2 % (2-11); Neutrophils Absolute Auto 7.6 x10*3/uL (2.0-8.3); Neutrophils Percent Auto 65.3 % (45-73); Platelet Count 358 X10*3/uL (160-400); Red Blood Count 4.13 X10*6/uL (4.20-5.50); Red Cell Distribution Width 13.3 % (11.0-16.0); White Blood Count 11.7 X10*3/uL (4.8-10.8)
[2023-11-15 02:26] LABS: Alanine Aminotransferase 13 U/L (0-31); Albumin Level 4.4 g/dL (3.5-5.0); Alkaline Phosphatase 85 U/L (39-117); Anion Gap 13 (12-20); Aspartate Amino Transferase 15 U/L (5-31); Bilirubin Direct 0.2 mg/dL (0.0-0.5); Bilirubin Total 0.4 mg/dL (0.0-1.0); Blood Urea Nitrogen 13 mg/dL (9-16); Calcium 9.4 mg/dL (8.4-10.2); Carbon Dioxide 27 mmol/L (22-29); Chloride 104 mmol/L (96-108); Creatinine Clr Calc Pharmacy 133.9; Estimated Glomerular Filt Rate > 60; Glucose Random 95 mg/dL (60-115); Lipase 16 U/L (8-78); Potassium 3.7 mmol/L (3.3-5.1); Sodium 140 mmol/L (135-145); Total Protein 7.7 g/dL (6.5-8.0)
[2023-11-15] MEDS: Famotidine 20 MG TABLET PO (03:14)
[2023-11-15] MEDS: Ondansetron ODT 4 MG TAB.RAPDIS TRANSLINGU (03:14)
[2023-11-15 04:01] VITALS: BP 118/60; PULSE 75; RESP 17; TEMP 36.4; O2SAT 98
== END 2023-11-15 04:03 | disposition home or self-care (01) ==
PROVIDERS: Emergency Provider Internal Medicine
DX: K29.00 Acute gastritis without bleeding (principal); Z79.899 Other long term (current) drug therapy
CPT/HCPCS: 36415; 80053; 81003; 81025; 82248; 83690; 85025; 99283; 99284

== ENCOUNTER 2024-04-22 17:34 | Emergency (ER) | payer OTHER, SELFPAY ==
--- NOTE | ~2024-04-22 | CT_ITS ---
EXAMINATION: CT ABDOMEN AND PELVIS WITH CONTRAST CLINICAL INFORMATION: Abdominal pain, nausea, vomiting COMPARISON: None available. TECHNIQUE: Multidetector volumetric images were obtained from the superior aspect of the liver through the pubic symphysis following administration 85 mL of Omnipaque 350 intravenous contrast. Sagittal and coronal reformatted images were obtained on the technologist's workstation. Oral contrast: No This CT examination was performed using dose optimization techniques as appropriate, variously including the following: *Automated exposure control *Adjustment of mA and/or kV according to patient size (this includes techniques or standardized protocols for targeted exams where dose is matched to indication/reason for exam; i.e. extremities or head) *Use of iterative reconstruction technique DLP: 741 mGy-cm FINDINGS: LUNG BASES: The visualized lung bases are unremarkable. LIVER, GALLBLADDER, AND BILIARY TREE: The liver is normal in size, shape, and attenuation. No focal hepatic lesion or biliary ductal dilatation is present. Gallbladder is not visualized. PANCREAS: Unremarkable. SPLEEN: Unremarkable. ADRENAL GLANDS: Unremarkable. KIDNEYS AND URETERS: Bilateral nephrograms are symmetric. No hydronephrosis or obstructing calculus identified. BLADDER: Minimally distended and grossly unremarkable. GASTROINTESTINAL TRACT: No evidence of bowel obstruction. Limited evaluation for wall thickening within much of the colon due to luminal collapse. Appendix is suspected to be collapsed. No free air is seen. ABDOMINAL WALL: No significant hernia is appreciated. LYMPH NODES: Normal. VASCULAR: Unremarkable. PELVIC VISCERA: Unremarkable. Trace pelvic free fluid noted. OSSEOUS STRUCTURES: Unremarkable. CT/CT abdomen pelvis w IV con IMPRESSION: Trace nonspecific pelvic free fluid, which may be physiologic. No additional acute findings identified. Of note, there is limited evaluation for wall thickening in much of the colon due to incomplete distention.
[2024-04-22 18:07] VITALS: BP 138/89; PULSE 105; RESP 18; TEMP 36.4; O2SAT 99; BMI 40.5
--- NOTE | 2024-04-22 18:16 | ED.GENADULT ---
HPI - General Adult General Chief complaint: Nausea/Vomiting/Diarrhea Stated complaint: vomiting Time Seen by Provider: 04/22/24 19:20 Source: patient Mode of arrival: ambulatory Limitations: no limitations History of Present Illness ED Provider: Lisa Luis PA-C HPI narrative: Patient is a 18 year old assigned female at with no reported medical history presenting to the emergency department today with nausea and vomiting. Patient states that she had [employer] last night and ever since has been having nausea and vomiting. Patient denies any dizziness, lightheadedness, abdominal pain, fever, chills, blurry vision, double vision, loss of vision, chest pain, difficulty breathing, shortness of breath, back pain, night sweats, pain with urination, increased urinary frequency, increased urinary urgency, blood in her urine or stool, syncope or a near syncopal episode, recent trauma or falls, bowel incontinence, bladder incontinence, or any other complaints at this time. Onset (ago): hour(s) Relieving factors: none Exacerbating factors: none Associated symptoms: nausea/vomiting Treatments prior to arrival: none Related Data Previous Rx's ?Medication ?Instructions ?Recorded erythromycin 5 mg/gram (0.5 %) eye 0.5 inch ophthalmic (eye) QID #3.5 08/28/20 ointment grams clindamycin HCl 300 mg capsule 300 mg PO Q6H 7 days #28 caps 08/15/21 oxycodone 5 mg capsule 5 mg PO Q8H PRN pain 2 days #6 caps 08/15/21 benzonatate 200 mg capsule 200 mg PO TID PRN cough #14 caps 11/27/21 ibuprofen 600 mg tablet 600 mg PO Q8H PRN pain #20 tabs 11/27/21 oseltamivir 75 mg capsule (Tamiflu) 75 mg PO BID 5 days #10 caps 11/27/21 miconazole nitrate 1,200 mg-2 % 1 supp vaginal BEDTIME 1 dose #1 ea 08/09/22 vaginal kit metronidazole 500 mg tablet 500 mg PO Q12H 7 days #14 tabs 08/12/22 erythromycin 5 mg/gram (0.5 %) eye 0.5 inch ophthalmic (eye) TID #3.5 10/03/22 ointment grams clindamycin HCl 300 mg capsule 300 mg PO Q6H #28 caps 01/09/23 (Cleocin HCl) ondansetron 4 mg disintegrating 4 mg PO Q8H PRN nausea and 01/09/23 tablet vomiting #20 tabs clindamycin HCl 300 mg capsule 300 mg PO TID #30 caps 04/28/23 (Cleocin HCl) tramadol 50 mg tablet 50 mg PO Q6H PRN pain #20 tabs 04/28/23 cefdinir 300 mg capsule 300 mg PO BID 7 days #14 caps 07/09/23 ondansetron 4 mg disintegrating 4 mg PO Q6-8H PRN nausea and 11/15/23 tablet vomiting #10 tabs sucralfate 1 gram tablet 1 g PO BID #60 tabs 11/15/23 ondansetron 4 mg disintegrating 4 mg PO Q8H 3 days #9 tabs 04/23/24 tablet Allergies Allergy/AdvReac Type Severity Reaction Status Date / Time amoxicillin [AMOXICILLIN] Allergy Unknown HIVES Verified 04/22/24 18:14 Review of Systems Constitutional: Constitutional: Reports no additional constitutional complaints, Denies chills, Denies fever(s) and Denies night sweats Eyes: Eyes: Reports no additional eye complaints, Denies blurry vision, Denies change in vision, Denies diplopia, Denies eye discharge, Denies loss of vision and Denies eye pain ENT: Denies dizziness Cardiovascular: Cardiovascular: Reports no additional cardiovascular complaints, Denies chest pain, Denies lightheadedness, Denies Loss of Consciousness and Denies dyspnea Respiratory: Respiratory: Reports no additional respiratory complaints and Denies dyspnea Gastrointestinal: Gastrointestinal: Reports no additional gastrointestinal complaints, Denies abdominal pain, Denies melena, Denies hematochezia, Denies change in bowel habits, Denies change in stool character, Reports nausea and Reports vomiting Genitourinary: Genitourinary: Denies hematuria, Denies urinary frequency, Denies dysuria, Denies urinary incontinence, Denies urinary hesitancy and Denies urinary urgency Musculoskeletal: Musculoskeletal: Reports no additional musculoskeletal complaints, Denies numbness and Denies tingling Neurologic: Denies dizziness, Denies loss of vision, Denies numbness and Denies tingling Psychiatric: Psychiatric: Reports no additional psychiatric complaints Endocrine: Endocrine: Reports no additional endocrine complaints Hematologic/Lymphatic: Hematologic/Lymphatic: Reports no additional hematologic/lymphatic complaints Allergic/Immunologic: Allergic/Immunologic: Reports no additional allergic/immunologic complaints [facility] Past Medical History Attestation statement: The following information was validated with the patient. Source: old records reviewed and nursing notes reviewed Medical History Asthma Surgical History S/P cholecystectomy Social History Social History Unable to assess alcohol history related to: Unknown Alcohol intake: never Smoked in Last 30 Days: No Use of substances other than those prescribed or required for medical reasons: No Advance Directives: No Advance Directives Information Provided: No Do you have a plan to hurt others: No Plan Patient : No Physical Exam ED Vital Signs: Vital Signs - 24 hr 04/22/24 18:07 04/22/24 21:05 04/23/24 00:15 Temperature 97.6 F 98.5 F 98.3 F Pulse Rate 105 H 100 96 Respiratory Rate 18 18 18 Blood Pressure 138/89 116/71 111/74 Pulse Oximetry 99 100 100 Oxygen Delivery Method Room Air Room Air Room Air 04/23/24 00:17 Temperature 98.3 F Pulse Rate 96 Respiratory Rate 18 Blood Pressure 111/74 Pulse Oximetry 100 Oxygen Delivery Method Room Air BMI result Body Mass Index 40.5 Const General: cooperative, no acute distress, alert and awake Nutritional Appearance: well nourished Orientation/consciousness: patient oriented x3 Limitations: no limitations HENMT Head: Yes normal to inspection and Yes atraumatic Ears: hearing grossly normal bilaterally and external ears normal General nose exam: Normal external nose present, no nasal discharge noted and no epistaxis Face and sinus: Yes normal facial exam, No abrasion and No laceration Mouth: Normal oral and palatal mucosa present, no drooling and no muffled voice Eyes General: appearance normal, both eyes and all related structures Periorbital: periorbital findings normal Eyelids: Yes eyelids normal Conjunctivae: conjunctivae normal Pupils: Equal, round and reactive pupils present EOM: EOMs intact bilaterally Neck Neck: Yes normal visual inspection, Yes full ROM and Yes no lymphadenopathy Chest Chest palpation & inspection: normal inspection of the chest Resp Effort & Inspection: normal respiratory effort and able to speak in complete sentences GI Inspection: Yes normal to inspection Palpation (GI): Soft to palpation, not firm, nontender, no guarding and not rigid Neuro General: patient oriented x3 and moves all extremities Cranial nerves: Yes Equal, round and reactive pupils present Cognition (Neuro): normal cognition Extrem General: Yes normal to inspection, Yes full ROM and Yes capillary refill normal Psych Appearance: grossly normal Mental Status: mental status grossly normal Affect: normal affect Attitude: cooperative Thought process: Normal thought process present Thought content: Normal thought content present Insight: Good insight present (Psych) Course Course Course Narrative: RME: Done by MALLIKA Petty. 18-year-old female presents to ED for nausea and vomiting without any abdominal pain, diarrhea, headache, dysuria, hematuria, flank pain, fever, or chills. Patient states symptoms started this morning. Patient states she finished. . Patient ate [employer] last night and this morning started having symptoms. Abdominal exam is benign. Labs SARs COVID strep ordered Medications Administered Discontinued Medications Generic Name Dose Route Start Last Admin Trade Name Freq PRN Reason Stop Dose Admin Droperidol 1.25 mg 04/22/24 21:17 04/22/24 22:10 Droperidol 5 Mg/2 Ml Vial IVPUSH 04/22/24 21:18 1.25 mg ONCE ONE Administration Sodium Chloride 1,000 mls @ 999 mls/hr 04/22/24 20:00 04/22/24 21:12 Ns IV 04/22/24 21:00 Infused .Q1H1M BENJY Infusion Iohexol 85 ml 04/22/24 22:04 04/22/24 22:05 Iohexol 350 Mg/Ml 100 Ml Infus..Btl IV 04/22/24 22:05 85 ml ONCE ONE Administration Metoclopramide HCl 10 mg 04/22/24 19:46 04/22/24 20:18 Metoclopramide Hcl 10 Mg/2 Ml Vial IVPUSH 04/22/24 19:47 10 mg ONCE ONE Administration Ondansetron HCl 4 mg 04/22/24 18:15 04/22/24 19:04 Ondansetron Odt 4 Mg Tab.Rapdis TRANSLINGU 04/22/24 18:16 4 mg ONCE ONE Administration Ondansetron HCl 4 mg 04/22/24 23:17 04/22/24 23:24 Ondansetron Hcl 4 Mg/2 Ml Vial IVPUSH 04/22/24 23:18 4 mg ONCE ONE Administration Pantoprazole Sodium 40 mg 04/22/24 23:17 04/22/24 23:24 Pantoprazole Sodium 40 Mg/10 Ml Vial IVPUSH 04/22/24 23:18 40 mg ONCE ONE Administration Sucralfate 1 gm 04/22/24 23:17 04/22/24 23:24 Sucralfate Oral Suspension 1 Gm/10 Ml Oral.Susp PO 04/22/24 23:18 1 gm ONCE ONE Administration Medical Decision Making Medical Decision Making [facility] Narrative: Patient is a 18 year old assigned female at with no reported medical history presenting to the emergency department today with nausea and vomiting after eating [employer]. Patient's physical exam was unremarkable. Patient's blood work was unremarkable. Patient's urine showed no acute process. Patient's abdomen/pelvis CT showed no acute process. I explained my physical exam findings as well as all test results to the patient. I answered all questions asked by the patient. Patient received multiple doses of anti-emetic medications which she stated helped her symptoms. I stressed the importance of the patient taking her medication as directed (either prescribed or as the over the counter packaging recommends). I stressed the importance of the patient following up with her primary care provider. I stressed the importance of the patient returning to the emergency department immediately if her symptoms were to worsen or if she were to develop any dizziness, shortness of breath, difficulty breathing, chest pain, blurry vision, loss of vision, nausea, vomiting, abdominal pain, fever, chills, back pain, or any other complaints. Patient verbalized agreement and understanding with this treatment plan and discharge. Differential Diagnosis Differential Diagnoses: The differential diagnosis associated with the presentation includes Gastroenteritis Enteritis Nausea Vomiting Admission/Observation Consideration of admission/observation: Escalation of care including admission/observation considered Patient would have been admitted to the hospital had her work up had any findings where hospital admission was appropriate and her clinical presentation warranted hospital admission. Lab Data [facility] Lab Attestation statement: I reviewed the patient's lab results. My interpretation of these results are in the [facility] Rationale portion of this note. 04/22/24 18:23 04/22/24 18:23 Labs: Lab Results 04/22/24 04/22/24 Range/Units 18:23 21:09 WBC 14.3 H (4.8-10.8) X10*3/uL RBC 4.28 (4.20-5.50) X10*6/uL Hgb 11.9 L (12.0-16.0) g/dl Hct 35.0 L (37.0-47.0) % MCV 81.8 (80.0-98.0) fL MCH 27.8 (27.0-33.0) pg MCHC 34.0 (31.0-35.0) g/dl RDW 13.2 (11.0-16.0) % Plt Count 386 (160-400) X10*3/uL MPV 9.6 (9.4-12.3) fL Immature Gran % (Auto) 0.5 H (0.0-0.4) % Neut % (Auto) 83.4 H (45-73) % Lymph % (Auto) 8.4 L (20-40) % [place] % (Auto) 6.7 (2-11) % Eos % (Auto) 0.8 (0-4) % Baso % (Auto) 0.2 (0-2) % Lymph # (Auto) 1.2 (1.2-4.9) X10*3/uL [place] # (Auto) 1.0 (0.1-1.2) X10*3/uL Eos # (Auto) 0.1 (0.0-0.4) X10*3/uL Baso # (Auto) 0.0 (0.0-0.2) X10*3/uL Abs Immat Gran (auto) 0.07 H (0.00-0.03) X10*3/uL Absolute Neuts (auto) 12.0 H (2.0-8.3) x10*3/uL Absolute Nucleated RBC 0.000 (0.0-0.012) X10*3/uL Nucleated RBC % (auto) 0.0 (0.0-0.2) /100WBC Sodium 141 (135-145) mmol/L Potassium 4.2 (3.3-5.1) mmol/L Chloride 109 H (96-108) mmol/L Carbon Dioxide 24 (22-29) mmol/L Anion Gap 12 (12-20) BUN 12 (9-16) mg/dL Creatinine 0.76 (0.5-1.4) mg/dL Estim Creat Clear Calc 125.9 Estimated GFR > 60 Random Glucose 103 (60-115) mg/dL Calcium 9.6 (8.4-10.2) mg/dL Total Bilirubin 0.5 (0.0-1.0) mg/dL AST 16 (5-31) U/L ALT 12 (0-31) U/L Alkaline Phosphatase 81 (39-117) U/L Total Protein 7.8 (6.5-8.0) g/dL Albumin 4.5 (3.5-5.0) g/dL Lipase 16 (8-78) U/L Beta HCG, Quant < 2 mIU/mL Urine Color Yellow Urine Appearance Clear Urine pH 7.5 (5.0-9.0) Ur Specific [place] 1.015 (1.005-1.025) Urine Protein Negative (Neg-Trace) mg/dL Urine Glucose (UA) Negative (Negative) mg/dL Urine Ketones Trace (Negative) mg/dL Urine Blood Negative (Negative) Urine Nitrite Negative (Negative) Ur Leukocyte Esterase Negative (Negative) Urine Test NEGATIVE (NEGATIVE) Urine Opiates Screen Not Detected (Not Detect) Ur Buprenorphine Scrn Not Detected (Not Detect) ng/mL Ur Oxycodone Screen Not Detected (Not Detect) ng/mL Urine Methadone Screen Not Detected (Not Detect) ng/mL Urine Fentanyl Screen Not Detected (Not Detect) Ur Barbiturates Screen Not Detected (Not Detect) Ur Phencyclidine Scrn Not Detected (Not Detect) Ur Amphetamines Screen Not Detected (Not Detect) U Benzodiazepines Scrn Not Detected (Not Detect) Urine Cocaine Screen Not Detected (Not Detect) U Marijuana (THC) Screen Not Detected (Not Detect) Influenza Type A (PCR) NEGATIVE (Negative) Influenza Type B (PCR) NEGATIVE (Negative) RSV RNA Qual (PCR) NEGATIVE (Negative) SARS-CoV-2 RNA (RT-PCR) NEGATIVE (Negative) S. pyogenes GrpA JORGE Negative (Negative) Independent Interpretation I performed an independent interpretation of an: CT Scan Interpretation: My interpretation is in agreement with the radiologist's impression of this imaging study. EXAMINATION: CT ABDOMEN AND PELVIS WITH CONTRAST CLINICAL INFORMATION: Abdominal pain, nausea, vomiting COMPARISON: None available. TECHNIQUE: Multidetector volumetric images were obtained from the superior aspect of the liver through the pubic symphysis following administration 85 mL of Omnipaque 350 intravenous contrast. Sagittal and coronal reformatted images were obtained on the technologist's workstation. Oral contrast: No This CT examination was performed using dose optimization techniques as appropriate, variously including the following: *Automated exposure control *Adjustment of mA and/or kV according to patient size (this includes techniques or standardized protocols for targeted exams where dose is matched to indication/reason for exam; i.e. extremities or head) *Use of iterative reconstruction technique DLP: 741 mGy-cm FINDINGS: LUNG BASES: The visualized lung bases are unremarkable. LIVER, GALLBLADDER, AND BILIARY TREE: The liver is normal in size, shape, and attenuation. No focal hepatic lesion or biliary ductal dilatation is present. Gallbladder is not visualized. PANCREAS: Unremarkable. SPLEEN: Unremarkable. ADRENAL GLANDS: Unremarkable. KIDNEYS AND URETERS: Bilateral nephrograms are symmetric. No hydronephrosis or obstructing calculus identified. BLADDER: Minimally distended and grossly unremarkable. GASTROINTESTINAL TRACT: No evidence of bowel obstruction. Limited evaluation for wall thickening within much of the colon due to luminal collapse. Appendix is suspected to be collapsed. No free air is seen. ABDOMINAL WALL: No significant hernia is appreciated. LYMPH NODES: Normal. VASCULAR: Unremarkable. PELVIC VISCERA: Unremarkable. Trace pelvic free fluid noted. OSSEOUS STRUCTURES: Unremarkable. CT/CT abdomen pelvis w IV con IMPRESSION: Trace nonspecific pelvic free fluid, which may be physiologic. No additional acute findings identified. Of note, there is limited evaluation for wall thickening in much of the colon due to incomplete distention. Dictated By: Maurilio Alcala MD Signed By: Electronically signed by Maurilio Alcala MD 04/22/24 1065 Radiology Impression Discussion of test interpretation with radiology: I have reviewed the radiologist's reading. Discharge Plan Discharge Clinical Impression: Gastroenteritis Patient Disposition: Home, Self-Care Instructions: Acute Nausea and Vomiting (ED) Additional Instructions: Follow up with your primary care provider. Return to the emergency department immediately if your symptoms worsen or if you develop any dizziness, shortness of breath, difficulty breathing, chest pain, blurry vision, loss of vision, nausea, vomiting, abdominal pain, fever, chills, back pain, or any other complaints. Prescriptions: New ondansetron 4 mg tablet,disintegrating 4 mg PO Q8H 3 Days Qty: 9 0RF No Action erythromycin 5 mg/gram (0.5 %) ointment 0.5 inch ophthalmic (eye) QID Qty: 3.5 0RF erythromycin 5 mg/gram (0.5 %) ointment 0.5 inch ophthalmic (eye) TID Qty: 3.5 0RF clindamycin HCl 300 mg capsule 300 mg PO Q6H 7 Days Qty: 28 0RF oxycodone 5 mg capsule 5 mg PO Q8H PRN (Reason: pain) 2 Days Qty: 6 0RF oseltamivir [Tamiflu] 75 mg capsule 75 mg PO BID 5 Days Qty: 10 0RF ibuprofen 600 mg tablet 600 mg PO Q8H PRN (Reason: pain) Qty: 20 0RF benzonatate 200 mg capsule 200 mg PO TID PRN (Reason: cough) Qty: 14 0RF miconazole nitrate 1,200-2 mg-% kit 1 supp vaginal BEDTIME Qty: 1 0RF metronidazole 500 mg tablet 500 mg PO Q12H 7 Days Qty: 14 0RF clindamycin HCl [Cleocin HCl] 300 mg capsule 300 mg PO Q6H Qty: 28 0RF ondansetron 4 mg tablet,disintegrating 4 mg PO Q8H PRN (Reason: nausea and vomiting) Qty: 20 0RF ondansetron 4 mg tablet,disintegrating 4 mg PO Q6-8H PRN (Reason: nausea and vomiting) Qty: 10 0RF sucralfate 1 gram tablet 1 g PO BID Qty: 60 0RF clindamycin HCl [Cleocin HCl] 300 mg capsule 300 mg PO TID Qty: 30 0RF tramadol 50 mg tablet 50 mg PO Q6H PRN (Reason: pain) Qty: 20 0RF cefdinir 300 mg capsule 300 mg PO BID 7 Days Qty: 14 0RF Ref[place]: [facility] [place]] (Call to establish and follow up with a primary care provider. If you already have a primary care provider, please follow up with them.) [facility] [place] [facility]] [facility] [place]] Stand Alone Forms: Work/School Release Interventions: ED Discharge Assessment Last Done: 04/23/24 00:17 Discharge Date/Time: 04/23/24 00:18 Print Language: Ukrainian
[2024-04-22 18:28] LABS: MANUAL DIFF FLAG NO
[2024-04-22 18:35] LABS: IDNOW Serial# 58CA691E; Strep A Nucleic Acid Negative (Negative)
[2024-04-22 18:36] LABS: Basophils Percent Auto 0.2 % (0-2); Eosinophils Absolute Auto 0.1 X10*3/uL (0.0-0.4); Eosinophils Percent Auto 0.8 % (0-4); Hemoglobin 11.9 g/dl (12.0-16.0); Imm Gran Abs Auto 0.07 X10*3/uL (0.00-0.03); Imm Gran Pct Auto 0.5 % (0.0-0.4); Lymphocytes Absolute Auto 1.2 X10*3/uL (1.2-4.9); Lymphocytes Percent Auto 8.4 % (20-40); Mean Corpuscular Hemoglobin 27.8 pg (27.0-33.0); Mean Corpuscular Volume 81.8 fL (80.0-98.0); Mean Platelet Volume 9.6 fL (9.4-12.3); Monocytes Percent Auto 6.7 % (2-11); Neutrophils Percent Auto 83.4 % (45-73); Platelet Count 386 X10*3/uL (160-400); Red Blood Count 4.28 X10*6/uL (4.20-5.50); Red Cell Distribution Width 13.2 % (11.0-16.0); White Blood Count 14.3 X10*3/uL (4.8-10.8)
[2024-04-22 18:48] LABS: Alanine Aminotransferase 12 U/L (0-31); Albumin Level 4.5 g/dL (3.5-5.0); Alkaline Phosphatase 81 U/L (39-117); Anion Gap 12 (12-20); Aspartate Amino Transferase 16 U/L (5-31); Bilirubin Total 0.5 mg/dL (0.0-1.0); Blood Urea Nitrogen 12 mg/dL (9-16); Calcium 9.6 mg/dL (8.4-10.2); Carbon Dioxide 24 mmol/L (22-29); Chloride 109 mmol/L (96-108); Creatinine Clr Calc Pharmacy 125.9; Estimated Glomerular Filt Rate > 60; Glucose Random 103 mg/dL (60-115); Lipase 16 U/L (8-78); Potassium 4.2 mmol/L (3.3-5.1); Sodium 141 mmol/L (135-145); Total Protein 7.8 g/dL (6.5-8.0)
[2024-04-22 18:55] LABS: HCG Quantitative < 2 mIU/mL
[2024-04-22] MEDS: Ondansetron ODT 4 MG TAB.RAPDIS TRANSLINGU (19:04)
[2024-04-22 19:07] LABS: Influenza A PCR NEGATIVE (Negative); Influenza B PCR NEGATIVE (Negative); Resp Syncy Virus RNA Qual PCR NEGATIVE (Negative); SARS COV2 PCR INHOUSE NEGATIVE (Negative)
[2024-04-22] MEDS: 0.9 % Sodium Chloride 1,000 ML 999 ML IV (20:18)
[2024-04-22] MEDS: Metoclopramide HCl 10 MG/2 ML VIAL IVPUSH (20:18)
[2024-04-22 21:05] VITALS: BP 116/71; PULSE 100; RESP 18; TEMP 36.9; O2SAT 100
[2024-04-22 21:18] LABS: Appearance Urine Clear; Color Urine Yellow; Glucose Urine UA Negative (Negative); Leukocyte Esterase Urine Negative (Negative); Nitrite Urine Negative (Negative); PH 7.5 (5.0-9.0); Specific Gravity - Urine 1.015 (1.005-1.025); Urine Blood Negative (Negative); Urine Ketones Trace mg/dL (Negative); Urine Protein Negative (Neg-Trace)
[2024-04-22 21:20] LABS: UPreg QC Valid YES; Urine Pregnancy NEGATIVE (NEGATIVE)
[2024-04-22 21:41] LABS: Amphetamine Screen Urine Not Detected (Not Detect); Barbiturates, Urine Not Detected (Not Detect); Benzodiazepines Screen Urine Not Detected (Not Detect); Buprenorphine Scr Not Detected (Not Detect); Cannabinoid Screen Urine Not Detected (Not Detect); Cocaine Screen Urine Not Detected (Not Detect); Fentanyl, urine Not Detected (Not Detect); Methadone Screen, Urine Not Detected (Not Detect); Opiate Screen Urine Not Detected (Not Detect); Oxycodone Screen Urine Not Detected (Not Detect); Phencyclidine Screen Urine Not Detected (Not Detect)
[2024-04-22] MEDS: iohexoL 350 MG/ML 100 ML INFUS..BTL 85 ML IV (22:05)
[2024-04-22] MEDS: droPERidol 5 MG/2 ML VIAL 1.25 MG IVPUSH (22:10)
[2024-04-22] MEDS: Pantoprazole Sodium 40 MG/10 ML VIAL IVPUSH (23:24)
[2024-04-22] MEDS: Sucralfate Oral Suspension 1 GM/10 ML ORAL.SUSP PO (23:24)
[2024-04-22] MEDS: ondansetron HCL 4 MG/2 ML VIAL IVPUSH (23:24)
--- NOTE | 2024-04-22 23:27 | PC.NURSE ---
continues to c/o nausea, epigastric pain. pa aware. awaiting ct scan.
[2024-04-23 00:15] VITALS: BP 111/74; PULSE 96; RESP 18; TEMP 36.8; O2SAT 100
[2024-04-23 00:17] VITALS: BP 111/74; PULSE 96; RESP 18; TEMP 36.8; O2SAT 100
== END 2024-04-23 00:18 | disposition home or self-care (01) ==
PROVIDERS: Physician Assistant; Physician Assistant Medical; Emergency Provider Emergency Medicine Emergency Medical Services
DX: K52.9 Noninfective gastroenteritis and colitis, unspecified (principal); R11.2 Nausea with vomiting, unspecified; Z79.899 Other long term (current) drug therapy; Z03.818 Encounter for observation for suspected exposure to other biological agents ruled out
CPT/HCPCS: 0241U; 36415; 74177; 80053; 80307; 81003; 81025; 83690; 84702; 85025; 87651; 96360; 96374; 96375; 99284; J1790; J2405; J2470; J2765; Q9967